=== PATIENT | female | born 1995 | race Caucasian/White ===

== ENCOUNTER 2017-03-12 11:29 | Emergency (ER) | payer SELFPAY ==
--- NOTE | ~2017-03-12 | ER ---
PATIENT'S NAME: ANNE HERNÁNDEZ [facility] AGE: 22 Y [address] ROOM: [place] [address] LOCATION: [facility] ADMIT DATE: 03/12/2017 ER/Outpatient Report DISCHARGE DATE: 03/12/2017 FAMILY PHYSICIAN: PHYSICIAN, NO ATTENDING PHYSICIAN: Daysi Harris TIME OF ARRIVAL: 1151 hours. TIME OF EXAM: 1151 hours. CHIEF COMPLAINT: Cough. HISTORY OF PRESENT ILLNESS: The patient states that she has had a cough for the past 3 months. States it has been productive of times of a light yellow phlegm, does progress to green at times. States in the last 2 days, the cough has gotten worse and she has developed pain on the right ribs area. Denies any trauma to the ribs. The ribs hurt when she takes a deep breath or coughs. She reports she has had fever at times. ALLERGIES: NO KNOWN ALLERGIES. CURRENT MEDICATIONS: No current mediations. PAST MEDICAL HISTORY: Benign past medical history. PAST SURGICAL HISTORY: Negative surgeries. States that she is currently on her period. SOCIAL HISTORY: She reports that she smokes a pack per day and has for the last seven years. Does smoke marijuana on a regular basis and drinks alcohol on a nightly basis. REVIEW OF SYSTEMS: All negative other than those mentioned in the HPI. PHYSICAL EXAMINATION: PATIENT'S NAME: ANNE HERNÁNDEZ [facility] AGE: 22 Y [address] ROOM: [place] [address] LOCATION: [facility] ADMIT DATE: 03/12/2017 ER/Outpatient Report DISCHARGE DATE: 03/12/2017 FAMILY PHYSICIAN: PHYSICIAN, NO ATTENDING PHYSICIAN: Daysi Harris VITAL SIGNS: She weighed 48.8 kg. Blood pressure is 106/67, pulse of 83, respirations 20, temperature of 98.4, O2 saturations 100% on room air. GENERAL: She is awake, alert, and oriented x4. SKIN: [place], warm, and dry. RESPIRATIONS: Even and nonlabored. Lung sounds are clear after cough. No wheezing noted. HEART: Regular rate and rhythm. ABDOMEN: Soft, nondistended. Bowel sounds are present. EMERGENCY DEPARTMENT COURSE: Chest x-ray was completed. No acute infiltrates noted. IMPRESSION: Bronchitis and costochondritis. PLAN: Home, rest, fluids, prescription was written for prednisone and azithromycin. She is to do Tylenol or ibuprofen as needed for discomfort. A note was written to excuse her from work. If her symptoms persist or worsen, she is to follow up with the primary provider. Cards of the clinics here in town were given to her for followup in the next 2-3 days. She verbalized understanding. YONNY MCCANN APRN FOR [facility], DO ARIAS/jeffrey /[id number] d: 03/12/171810 t: 03/14/17 0931, OUTPATIENT REPORT
== END 2017-03-12 12:26 | disposition disaster alternative care site (69) ==
LOC: EDBD 11:29 → GMED 11:29
DX: J40 Bronchitis, not specified as acute or chronic (principal); M94.0 Chondrocostal junction syndrome [Tietze]; F17.210 Nicotine dependence, cigarettes, uncomplicated